=== PATIENT | male | born 1985 | race African-American/Black ===

== ENCOUNTER 2018-06-29 12:32 | Emergency (ER) | payer OTHER ==
[~2018-06-29] VITALS: Ht 180.3 cm; Wt 85.0 kg
[2018-06-29 12:55] VITALS: BP 118/77
[2018-06-29] MEDS ORDERED: CARBAMIDE PEROXIDE 6.5% 15 ML OTIC SOLUTION AD ONE (13:00)
== END 2018-06-29 13:52 | disposition home or self-care (01) ==
LOC: EMS 12:32
DX: H61.21 Impacted cerumen, right ear (principal); F17.210 Nicotine dependence, cigarettes, uncomplicated
CPT/HCPCS: 69209; 99406

== ENCOUNTER 2022-06-18 16:14 | Emergency (ER) | payer OTHER ==
[~2022-06-18] VITALS: Ht 177.8 cm; Wt 85.0 kg
[2022-06-18 16:30] VITALS: BP 143/68
== END 2022-06-18 20:02 | disposition home or self-care (01) ==
LOC: EMS 16:15
DX: S61.411A Laceration without foreign body of right hand, initial encounter (principal); F17.210 Nicotine dependence, cigarettes, uncomplicated; X58.XXXA Exposure to other specified factors, initial encounter; Y93.89 Activity, other specified; Y92.89 Other specified places as the place of occurrence of the external cause; Y99.8 Other external cause status
CPT/HCPCS: 99281; Z7502